=== PATIENT | male | born 1945 | race Hispanic/Latino ===

== ENCOUNTER 2019-04-02 07:50 | Inpatient (IN) | payer MEDICARE ==
[~2019-04-02] VITALS: Ht 165.1 cm; Wt 72.7 kg
[2019-04-02] VITALS (20 sets, daily range): BP systolic 88–205; BP diastolic 48–85
[2019-04-02 08:03] LABS: BASOPHILS % (AUTO) 0.5 % (0.0-5.0); HEMATOCRIT 34.1 % (42-54); LYMPHOCYTES % (AUTO) 13.4 % (21.0-51.0); MEAN CORPUSCULAR HEMOGLOBIN 28.7 pg (27.0-33.0); MEAN CORPUSCULAR HGB CONC 33.7 g/dL (32.0-36.0); MEAN CORPUSCULAR VOLUME 85.3 fL (79-99); MONOCYTES % (AUTO) 7.3 % (3.0-13.0); NEUTROPHILS % (AUTO) 77.8 % (40.0-77.0); PLATELET COUNT (AUTO) 231 K/uL (130-400); RED CELL DISTRIBUTION WIDTH 17.2 % (11.0-15.5)
[2019-04-02 08:16] LABS: CREATININE 0.8 mg/dL (0.5-1.5); POTASSIUM 4.6 mmol/L (3.5-5.1)
[2019-04-02 08:21] LABS: ALBUMIN 3.6 g/dL (3.5-5.0); BILIRUBIN,TOTAL 0.3 mg/dL (0.2-1.0); TOTAL PROTEIN, SERUM 7.3 g/dL (6.0-8.3)
[2019-04-02 08:22] LABS: MAGNESIUM 1.7 mg/dL (1.80-2.40)
[2019-04-02] MEDS ORDERED: MAGNESIUM OXIDE 400 MG TABLET PO ONE (08:34)
[2019-04-02 10:03] LABS: APPEARANCE,URINE Clear (CLEAR); BILIRUBIN,URINE Negative (NEGATIVE); GLUCOSE, URINE (UA) Negative (NEGATIVE); KETONES,URINE Trace mg/dL (NEGATIVE); LEUKOCYTE ESTERASE ,URINE Negative (NEGATIVE); NITRATE,URINE Negative (NEGATIVE); OCCULT BLOOD,URINE Negative (NEGATIVE); PROTEIN,URINE Negative (NEGATIVE)
[2019-04-02 10:05] LABS: COLOR,URINE YELLOW (YELLOW)
[2019-04-02] MEDS ORDERED: ACETAMINOPHEN 325 MG TAB PO PRN ×2 (10:30)
[2019-04-02] MEDS ORDERED: HYDRALAZINE HCL 20 MG/ML VIAL IV PRN (10:30)
[2019-04-02] MEDS ORDERED: SODIUM CHLORIDE 0.9% 1000ML 1,000 ML IV ONE (11:52)
[2019-04-02] MEDS ORDERED: LORAZEPAM 2 MG/ML 1 ML VIAL ONE ×3 (12:13→13:04)
[2019-04-02] MEDS ORDERED: SODIUM CHLORIDE 0.9% 100 ML IV ONE (12:17)
[2019-04-02 13:07] LABS: ABG BASE EXCESS -2.1 mmol/L (-2.0-3.0); ABG HCO3 24.6 mmol/L (21.0-28.0); ABG OXYGEN SATURATION 99.8 % (95.0-99.0); ABG PCO2 49 mmHg (35-48)
--- NOTE | 2019-04-02 14:00 | NUR ---
RECEIVED PT FROM ER. ASSESSMENT COMPLETED NOTED. PT ORALLY INTUBATED AT PRESCRIBED VENT SETTINGS. PIV X 2 INTACT. PT ON NS AT 100 ML/HR. VS NOTED ON COMPUTER. NO SEIZURE ACTIVITY NOTED AT THIS TIME. DR. SALINAS CALLED AND NOTIFIED OF PT ARRIVAL TO UNIT.
[2019-04-02] MEDS ORDERED: PROPOFOL 1000 MG/100 ML 100 ML IV ONE ×2 (14:11→20:09)
[2019-04-02] MEDS ORDERED: LISI-617 PO (14:50)
[2019-04-02] MEDS ORDERED: TAMS-1 PO (14:50)
[2019-04-02] MEDS ORDERED: AMAN100C12 PO (14:50)
[2019-04-02] MEDS ORDERED: GABA-529 PO (14:50)
[2019-04-02] MEDS ORDERED: PALI3TAB5 PO (14:50)
[2019-04-02] MEDS ORDERED: ESCI20TA36 PO (14:50)
[2019-04-02] MEDS ORDERED: LOVA40TA2 PO (14:50)
[2019-04-02] MEDS ORDERED: DUTA0.5C17 PO (14:50)
[2019-04-02] MEDS ORDERED: DONE10TA43 PO (14:50)
[2019-04-02] MEDS ORDERED: BUPR150T8 PO (14:50)
[2019-04-02] MEDS ORDERED: METF-444 PO (14:50)
[2019-04-02] MEDS ORDERED: CARB1TAB41 PO (14:50)
[2019-04-02] MEDS ORDERED: SOLI5 PO (14:50)
[2019-04-02] MEDS ORDERED: ROTI1PAT10 TD (14:50)
[2019-04-02] MEDS: SODIUM CHLORIDE 0.9% 1000ML 1,000 ML IV SCH ×2 (14:52→20:21)
[2019-04-02] MEDS ORDERED: LORAZEPAM 2 MG/ML 1 ML VIAL IVP PRN (15:00)
--- NOTE | 2019-04-02 15:00 | NUR ---
Manuel VAIL CAR BODY DESIGNER AT BEDSIDE TO SEE PT. PLAN OF CARE DISCUSSED. NEW ORDERS RECEIVED AND NOTED. PT STARTED ON PROPOFOL FOR SEDATION AND HYDRALAZINE GIVEN FOR SBP 200S. AT BEDSIDE. ALL QUESTIONS ANSWERED.
[2019-04-02] MEDS: PHENYTOIN SODIUM 50 MG/ML 2ML VIAL IV SCH (15:34)
[2019-04-02] MEDS: LACTATED RINGERS 1000ML 1,000 ML IV SCH (15:34)
[2019-04-02] MEDS: THIAMINE HCL 100 MG/ML 2ML VIAL IM SCH (20:11)
[2019-04-02] MEDS: FAMOTIDINE/PF 20 MG/2 ML VIAL IV SCH (20:11)
[2019-04-02] MEDS ORDERED: FAMOTIDINE/PF 20 MG/2 ML VIAL IV SCH (21:00)
[2019-04-03] VITALS (27 sets, daily range): BP systolic 57–141; BP diastolic 40–77
[2019-04-03] MEDS: PHENYTOIN SODIUM 50 MG/ML 2ML VIAL IV SCH ×3 (01:08→16:40)
[2019-04-03] MEDS: LACTATED RINGERS 1000ML 1,000 ML IV SCH (01:19)
[2019-04-03] MEDS ORDERED: PROPOFOL 1000 MG/100 ML 100 ML IV ONE (02:57)
[2019-04-03] MEDS ORDERED: PROPOFOL 1000 MG/100 ML IV PRN (03:30)
[2019-04-03 03:43] LABS: BASOPHILS % (AUTO) 0.6 % (0.0-5.0); EOSINOPHILS % (AUTO) 0.5 % (0.0-8.0); HEMATOCRIT 31.7 % (42-54); LYMPHOCYTES % (AUTO) 19.5 % (21.0-51.0); MEAN CORPUSCULAR HEMOGLOBIN 28.2 pg (27.0-33.0); MEAN CORPUSCULAR HGB CONC 33.4 g/dL (32.0-36.0); MEAN CORPUSCULAR VOLUME 84.6 fL (79-99); MONOCYTES % (AUTO) 11.8 % (3.0-13.0); NEUTROPHILS % (AUTO) 67.6 % (40.0-77.0); NUCLEATED RED BLOOD CELLS 0.1 % (0.0-0.19); PLATELET COUNT (AUTO) 237 K/uL (130-400); RED BLOOD CELL COUNT(AUTO) 3.75 MIL/uL (4.50-6.20); RED CELL DISTRIBUTION WIDTH 16.9 % (11.0-15.5)
[2019-04-03 03:53] LABS: CREATININE 0.7 mg/dL (0.5-1.5); POTASSIUM 3.8 mmol/L (3.5-5.1)
[2019-04-03] MEDS: INSULIN HUMULIN R 100 UNIT/ML 3ML SQ SCH ×5 (06:00→23:57)
[2019-04-03] MEDS: SODIUM CHLORIDE 0.9% 1000ML 1,000 ML IV SCH ×2 (06:21→10:18)
[2019-04-03] MEDS: PROPOFOL 1000 MG/100 ML 100 ML IV PRN (08:13)
[2019-04-03] MEDS: THIAMINE HCL 100 MG/ML 2ML VIAL IM SCH ×2 (08:55→20:18)
[2019-04-03] MEDS: ASPIRIN 325 MG TABLET PO SCH (08:56)
[2019-04-03] MEDS: FAMOTIDINE/PF 20 MG/2 ML VIAL IV SCH ×2 (08:56→20:17)
[2019-04-03] MEDS: ENOXAPARIN SODIUM 40 MG/0.4 ML SYRINGE SQ SCH (08:58)
[2019-04-03] MEDS ORDERED: MAGNESIUM 2GM PREMIX 50ML 50 ML IV PRN (09:45)
[2019-04-03 09:47] LABS: ABG BASE EXCESS 3.8 mmol/L (-2.0-3.0); ABG OXYGEN SATURATION 99.1 % (95.0-99.0); ABG PCO2 32 mmHg (35-48)
--- NOTE | 2019-04-03 09:47 | NUR ---
Decreased rate to 10 and FiO2 to 30% Addendum: 04/03/19 at 1048 by EHENA SARMIENTO RT Amended: Links added.
--- NOTE | 2019-04-03 10:15 | NUR ---
Per Nursing to disregard Physical Therapy order for now.LAVELL Man aware of this matter.Patient is intubated. Addendum: 04/03/19 at 1018 by TIKI SHERMAN, PT PT Amended: Links added.
[2019-04-03] MEDS ORDERED: LEVETIRACETAM 1,000 MG in SODIUM CHLORIDE 0.9% 100 ML IV SCH (11:00)
[2019-04-03] MEDS: ALBUTEROL SULFATE 0.083% 2.5 MG/3 ML INH IH PRN ×3 (12:04→23:42)
[2019-04-03] MEDS ORDERED: COMPOUND IV MISC 1 EACH IVSOLN MISC PRN ×2 (12:15→16:00)
--- NOTE | 2019-04-03 14:09 | NUR ---
DC PLAN VISITED WITH PATIENT. PATIENT VENTED. SPOUSE AT BEDSIDE. PATIENT LIVES WITH SPOUSE ON NEXT TO CHILDREN. PATIENT USES A CANE AND WALKER. PROVIDER 18 HRS A WEEK. FEELS SHOULD BE SAFE TO RETURN HOME. WILL WAIT UNTIL PATIENT IS EXTUBATED TO SEE HOW PATIENT DOES. Addendum: 04/03/19 at 1412 by MIKE URIARTE RN CM Amended: Links added.
[2019-04-03] MEDS ORDERED: PHARMACY COMMUNICATION MISC SCH (15:00)
--- NOTE | 2019-04-03 15:00 | NUR ---
PATIENT RESEDATED, PER DR RUBIN'S REQUEST; WILL TRY SEDATION VACATION AGAIN TOMORROW MORNING
[2019-04-03] MEDS: ZOSYN 3.375GM+NS 50ML 50 ML IV SCH ×2 (15:34→20:15)
[2019-04-03] MEDS: CARBIDOPA-LEVODOPA 25-100 TAB PO SCH ×2 (15:34→20:18)
[2019-04-03] MEDS ORDERED: CHLORIDE IV SCH (16:00)
[2019-04-03] MEDS ORDERED: SODIUM IV SCH (16:00)
[2019-04-03] MEDS ORDERED: VALPROIC ACID IV SCH (16:00)
--- NOTE | 2019-04-03 19:00 | NUR ---
BEDSIDE REPORT RECEIVED FROM AM NURSE. PT SEDATED & INTUBATED. ORAL CARE PROVIDED. NO S/S OF SEIZURES AT THIS TIME. BREATHING OVER VENT WITH TOTAL RESP RATE OF 14-16. PROPOFOL AT 10MCG/KG/MIN. PUPILS SLUGGISH, BUT EQUALLY REACTIVE. EYES MOVE FROM SIDE TO SIDE CONTINUOUSLY. DOES NOT FOCUS. INCREASED PROPOFOL TO 15MCG/KG/MIN. BEDSIDE MONITORING SINUS HERRERA HR 50'S. SBP 120'S. REFER TO V/S FLOWSHEET. REPOSITIONED FOR COMFORT. BILATERAL LOWER EXTREMITY SCD'S. SPOUSE AT BEDSIDE. INSTRUCTED ON PLAN OF CARE. ALL QUESTIONS ADDRESSED & ANSWERED IN DETAIL. PT ON ASPIRATION & SEIZURE PRECAUTIONS. HOB ELEVATED TO 35 DEGREES AND ALL 4 RAILS PADDED.
[2019-04-03] MEDS: LEVETIRACETAM 1,500 MG in SODIUM CHLORIDE 0.9% 100 ML IV SCH (20:16)
[2019-04-03] MEDS: GABAPENTIN 100 MG CAPSULE PO SCH (20:18)
[2019-04-03] MEDS: SIMVASTATIN 20 MG TABLET PO SCH (20:18)
--- NOTE | 2019-04-03 21:00 | NUR ---
NGT CLAMPED. POSITION VERIFIED BY AUSCULTATION OF AIR IN EPIGASTRIC AREA. NO RESIDUALS. PM MEDS CRUSHED AND GIVEN VIA NGT FLUSHED WITH 200ML OF WATER. HOB 40 DEGREES. SPOUSE IN ROOM.
--- NOTE | 2019-04-03 23:02 | NUR ---
REPOSITIONED FOR COMFORT. ORAL CARE PROVIDED. NO S/S OF SEIZURES. SPOUSE STATED SHE WILL STAY OVER NIGHT.
--- NOTE | 2019-04-03 23:55 | NUR ---
RECEIVED CALL FROM DR RUBIN. ASKED FOR PT UPDATED. INFORMED HIM OF V/S, CURRENT SEDATION RATE, RESPIRATORY STATUS, NO S/S OF SEIZURES DURING MY SHIFT. HE ORDERED TO REPEAT CT BRAIN WITHOUT CONTRAST FOR TOMORROW AND SPECIFIED FOR IT TO BE DONE AFTER 8AM.
[2019-04-04] VITALS (24 sets, daily range): BP systolic 100–152; BP diastolic 52–70
[2019-04-04] MEDS: PHENYTOIN SODIUM 50 MG/ML 2ML VIAL IV SCH ×4 (00:02→23:36)
[2019-04-04] MEDS: SODIUM CHLORIDE 0.9% 1000ML 1,000 ML IV SCH ×3 (02:25→23:36)
[2019-04-04] MEDS: ZOSYN 3.375GM+NS 50ML 50 ML IV SCH ×3 (03:51→21:12)
[2019-04-04] MEDS: PROPOFOL 1000 MG/100 ML 100 ML IV PRN ×2 (03:52→10:31)
[2019-04-04 03:53] LABS: HEMATOCRIT 33.3 % (42-54); MEAN CORPUSCULAR HEMOGLOBIN 28.2 pg (27.0-33.0); MEAN CORPUSCULAR VOLUME 85.5 fL (79-99); PLATELET COUNT (AUTO) 213 K/uL (130-400); RED CELL DISTRIBUTION WIDTH 17.3 % (11.0-15.5)
[2019-04-04 04:00] LABS: CREATININE 0.7 mg/dL (0.5-1.5); POTASSIUM 3.6 mmol/L (3.5-5.1)
[2019-04-04] MEDS ORDERED: VALPROIC ACID (AS SODIUM SALT) 500 MG in SODIUM CHLORIDE 0.9% 50 ML IV SCH (04:00)
[2019-04-04] MEDS ORDERED: POTASSIUM CHLORIDE 10% ELIXIR 20 MEQ/15 ML UDCUP ONE (04:26)
[2019-04-04] MEDS ORDERED: POTASSIUM CHLORIDE 20MEQ/100ML 100 ML IV PRN (04:30)
[2019-04-04] MEDS ORDERED: POTASSIUM CHLORIDE 20 MEQ ERTAB PO PRN (04:30)
[2019-04-04] MEDS ORDERED: LIDOCAINE HCL-MPF 1% 2ML VIAL IVP PRN (04:30)
[2019-04-04] MEDS: INSULIN HUMULIN R 100 UNIT/ML 3ML SQ SCH ×4 (05:23→23:18)
--- NOTE | 2019-04-04 05:36 | NUR ---
HYPOKALEMIA COVERED WITH 20MEQ KCL ELIXIR PER OG TUBE AND PER MD PROTOCOL. PORTABLE CXR DONE. TOLERATED WELL. Addendum: 04/04/19 at 0538 by YAMILET JARA RN RN Amended: Links added.
[2019-04-04] MEDS: ALBUTEROL SULFATE 0.083% 2.5 MG/3 ML INH IH PRN (06:08)
[2019-04-04] MEDS: LEVETIRACETAM 1,500 MG in SODIUM CHLORIDE 0.9% 100 ML IV SCH ×2 (08:59→20:35)
[2019-04-04] MEDS: THIAMINE HCL 100 MG/ML 2ML VIAL IM SCH ×2 (09:00→20:35)
[2019-04-04] MEDS: GABAPENTIN 100 MG CAPSULE PO SCH ×2 (09:00→20:36)
[2019-04-04] MEDS: ASPIRIN 325 MG TABLET PO SCH (09:00)
[2019-04-04] MEDS: CARBIDOPA-LEVODOPA 25-100 TAB PO SCH (09:00)
[2019-04-04] MEDS: FAMOTIDINE/PF 20 MG/2 ML VIAL IV SCH ×2 (09:00→20:34)
[2019-04-04] MEDS ORDERED: BUPROPION HCL 150 MG TABLET.SA PO SCH (09:00)
[2019-04-04] MEDS: CITALOPRAM 20 MG TABLET PO SCH (09:00)
[2019-04-04] MEDS: ENOXAPARIN SODIUM 40 MG/0.4 ML SYRINGE SQ SCH (09:01)
[2019-04-04] MEDS: IPRATROPIUM/ALBUTEROL SULFATE 3 ML SOLUTION IH SCH ×4 (10:13→21:17)
[2019-04-04] MEDS: POTASSIUM CHLORIDE 10% ELIXIR 20 MEQ/15 ML UDCUP PO PRN (10:30)
--- NOTE | 2019-04-04 12:05 | NUR ---
Nutrition intervention: Nutrition consult for TF recommendations. Pt with OGT in place. Admitted for syncope vs. seizures. Currently on Dilantin via IV, Propofol at 8.4ml/hr providing 222kcals. Pt with PMH of prostate cancer, HTN, DM, hyperlipidemia, dementia, Parkinson's, schizophrenia, anxiety. LBM unknown. Recommendations: Glucerna 1.5, Goal rate of 50ml/hr, 175ml Q6H. Please consult RD if dilantin medication changes to PO while on TF. TF schedule to be changed to accommodate for medication. RD to continue monitoring pt's nutritional status for continued intervention. Addendum: 04/04/19 at [address] Amended: Links added.
[2019-04-04] MEDS: LEVODOPA PO SCH ×3 (12:58→20:36)
[2019-04-04] MEDS: CARBIDOPA PO SCH ×3 (12:58→20:36)
[2019-04-04] MEDS ORDERED: PHARMACY COMMUNICATION MISC SCH ×2 (13:00→16:00)
[2019-04-04] MEDS: NEUPRO TD SCH (13:11)
[2019-04-04] MEDS ORDERED: SODIUM IV SCH (16:15)
[2019-04-04] MEDS ORDERED: VALPROIC ACID IV SCH (16:15)
[2019-04-04] MEDS ORDERED: CHLORIDE IV SCH (16:15)
[2019-04-04] MEDS: SIMVASTATIN 20 MG TABLET PO SCH (20:36)
[2019-04-05] VITALS (24 sets, daily range): BP systolic 115–162; BP diastolic 51–86
[2019-04-05] MEDS: IPRATROPIUM/ALBUTEROL SULFATE 3 ML SOLUTION IH SCH ×6 (01:29→21:24)
[2019-04-05] MEDS: SODIUM IV SCH ×2 (04:04→17:00)
[2019-04-05] MEDS: VALPROIC ACID IV SCH ×2 (04:04→17:00)
[2019-04-05] MEDS: CHLORIDE IV SCH ×2 (04:04→17:00)
[2019-04-05] MEDS: ZOSYN 3.375GM+NS 50ML 50 ML IV SCH ×3 (04:09→21:37)
[2019-04-05 04:15] LABS: MEAN CORPUSCULAR HGB CONC 32.9 g/dL (32.0-36.0); MEAN CORPUSCULAR VOLUME 85.1 fL (79-99); PLATELET COUNT (AUTO) 223 K/uL (130-400); RED BLOOD CELL COUNT(AUTO) 3.76 MIL/uL (4.50-6.20); RED CELL DISTRIBUTION WIDTH 17.4 % (11.0-15.5); WHITE BLOOD COUNT (AUTO) 15.9 K/uL (4.8-10.8)
[2019-04-05 04:16] LABS: INR 1.01 (0.85-1.15); PARTIAL THROMBOPLASTIN TIME 32.1 SEC (26.3-35.5); PROTHROMBIN TIME 10.6 SEC (9.6-11.6)
[2019-04-05 04:18] LABS: CREATININE 0.7 mg/dL (0.5-1.5); POTASSIUM 3.8 mmol/L (3.5-5.1)
[2019-04-05 04:54] LABS: ABG BASE EXCESS -0.9 mmol/L (-2.0-3.0); ABG HCO3 23.2 mmol/L (21.0-28.0); ABG OXYGEN SATURATION 98.2 % (95.0-99.0); ABG PCO2 37 mmHg (35-48)
[2019-04-05] MEDS: INSULIN HUMULIN R 100 UNIT/ML 3ML SQ SCH ×3 (06:00→18:00)
[2019-04-05] MEDS: SODIUM CHLORIDE 0.9% 1000ML 1,000 ML IV SCH (08:21)
[2019-04-05] MEDS: PHENYTOIN SODIUM 50 MG/ML 2ML VIAL IV SCH ×2 (08:58→16:00)
[2019-04-05] MEDS: FAMOTIDINE/PF 20 MG/2 ML VIAL IV SCH ×2 (08:58→21:36)
[2019-04-05] MEDS: THIAMINE HCL 100 MG/ML 2ML VIAL IM SCH ×2 (08:59→21:36)
[2019-04-05] MEDS: CITALOPRAM 20 MG TABLET PO SCH (08:59)
[2019-04-05] MEDS: LEVODOPA PO SCH ×4 (09:00→21:41)
[2019-04-05] MEDS: CARBIDOPA PO SCH ×4 (09:00→21:41)
[2019-04-05] MEDS: NEUPRO TD SCH (09:00)
[2019-04-05] MEDS: ASPIRIN 325 MG TABLET PO SCH (09:00)
--- NOTE | 2019-04-05 09:30 | NUR ---
PT'S HAS BEEN ADVISED OF ALL THE PROCEDURES TO BE DONE AND PLAN OF CARE. VERBALIZES UNDERSTANDING AND CONSENT FOR LUMBAR PUNCTURE TO BE SIGNED.
[2019-04-05] MEDS: GABAPENTIN 100 MG CAPSULE PO SCH ×2 (09:32→21:37)
[2019-04-05] MEDS: LEVETIRACETAM 1,500 MG in SODIUM CHLORIDE 0.9% 100 ML IV SCH ×2 (09:32→21:35)
[2019-04-05] MEDS: LEVOFLOXACIN 500 MG/D5W 100 ML 100 ML IV SCH (09:53)
--- NOTE | 2019-04-05 11:20 | NUR ---
PT HAD SPINAL TAP PROCEDURE PER DR. LUTHER FRANKEL. PT WAS PLACED IN A SITTING POSITION FOR PROCEDURE. CSF WAS SEND ORDERED AND WILL AWAIT FOR RESULTS TO NOTIFY DR. RUBIN.
[2019-04-05 11:51] LABS: GLUCOSE, CSF 102 mg/dL (40-70); TOTAL PROTEIN, CSF 58 mg/dL (15-45)
[2019-04-05 12:01] LABS: APPEARANCE2,CSF CLEAR (CLEAR); COLOR2,CSF COLORLESS (COLORLESS); CSF 2ND TUBE NUMBER TUBE NO.2
--- NOTE | 2019-04-05 15:00 | NUR ---
PLACED A CALL TO R TO INITIATE A TRANSFER TO A HIGHER LEVEL OF CARE FOR A CONTINUOUS EEG MONITORING DURING SEDATION REDUCTION, TO R/O PARKINSON'S TREMORS VS SEIZURES. SPOKE WITH [facility], SHE STATED THAT THEY ARE AT CAPACITY, NO NEURO ICU BEDS AT THIS TIME.
--- NOTE | 2019-04-05 18:00 | NUR ---
WAS ADVISED OF POSSIBLE TRANSFER TO [facility] AND IS UNSURE IF SHE CAN GO WITH PATIENT DUE TO HER NOT HAVING ANYONE TO TAKE HER BACK AND FORTH.
[2019-04-05] MEDS: SIMVASTATIN 20 MG TABLET PO SCH (21:37)
[2019-04-06] VITALS (19 sets, daily range): BP systolic 113–157; BP diastolic 46–105
[2019-04-06] MEDS ORDERED: SODIUM CHLORIDE 0.9% 100 ML IV ONE (00:10)
[2019-04-06] MEDS: PHENYTOIN SODIUM 50 MG/ML 2ML VIAL IV SCH ×3 (00:11→15:54)
[2019-04-06] MEDS: IPRATROPIUM/ALBUTEROL SULFATE 3 ML SOLUTION IH SCH ×4 (01:58→13:37)
[2019-04-06] MEDS: PROPOFOL 1000 MG/100 ML 100 ML IV PRN (03:05)
[2019-04-06] MEDS: SODIUM CHLORIDE 0.9% 1000ML 1,000 ML IV SCH ×3 (04:11→16:01)
[2019-04-06] MEDS: ZOSYN 3.375GM+NS 50ML 50 ML IV SCH ×2 (04:12→14:19)
[2019-04-06] MEDS: VALPROIC ACID IV SCH ×2 (04:20→16:33)
[2019-04-06] MEDS: SODIUM IV SCH ×2 (04:20→16:33)
[2019-04-06] MEDS: CHLORIDE IV SCH ×2 (04:20→16:33)
[2019-04-06 04:35] LABS: CREATININE 0.6 mg/dL (0.5-1.5); POTASSIUM 3.5 mmol/L (3.5-5.1)
[2019-04-06 04:39] LABS: HEMATOCRIT 29.9 % (42-54); MEAN CORPUSCULAR HEMOGLOBIN 29.1 pg (27.0-33.0); MEAN CORPUSCULAR HGB CONC 33.8 g/dL (32.0-36.0); MEAN CORPUSCULAR VOLUME 86.1 fL (79-99); NUCLEATED RED BLOOD CELLS 0.1 % (0.0-0.19); PLATELET COUNT (AUTO) 184 K/uL (130-400); RED BLOOD CELL COUNT(AUTO) 3.47 MIL/uL (4.50-6.20); RED CELL DISTRIBUTION WIDTH 17.5 % (11.0-15.5)
[2019-04-06] MEDS: INSULIN HUMULIN R 100 UNIT/ML 3ML SQ SCH ×4 (06:00→18:00)
[2019-04-06 06:14] LABS: ABG BASE EXCESS 1.5 mmol/L (-2.0-3.0); ABG HCO3 25.6 mmol/L (21.0-28.0); ABG OXYGEN SATURATION 97.8 % (95.0-99.0); ABG PCO2 39 mmHg (35-48)
[2019-04-06] MEDS: LEVETIRACETAM 1,500 MG in SODIUM CHLORIDE 0.9% 100 ML IV SCH (09:20)
[2019-04-06] MEDS: ASPIRIN 325 MG TABLET PO SCH (09:22)
[2019-04-06] MEDS: CITALOPRAM 20 MG TABLET PO SCH (09:22)
[2019-04-06] MEDS: GABAPENTIN 100 MG CAPSULE PO SCH (09:22)
[2019-04-06] MEDS: LEVODOPA PO SCH ×3 (09:23→16:33)
[2019-04-06] MEDS: CARBIDOPA PO SCH ×3 (09:23→16:33)
[2019-04-06] MEDS: FAMOTIDINE/PF 20 MG/2 ML VIAL IV SCH (09:28)
[2019-04-06] MEDS: NEUPRO TD SCH (09:36)
[2019-04-06] MEDS: THIAMINE HCL 100 MG/ML 2ML VIAL IM SCH (09:40)
--- NOTE | 2019-04-06 10:17 | NUR ---
Nutrition Follow-up: [facility] post epilepticus(04/02/19). Pt. S/P Lumbar puncture(04/05/19). Pt. on TF with Glucerna 1.5@40ml/hr with no residuals. Labs reviewed(Alb 3.6, BG 148). LBM: Not available. SR-12, elastic. Recommendations: 1) Rec. increase Glucerna TF rate by 5ml every 5 hrs. to goal rate of 50ml/hr. 2) Flush with 175ml free water every 6 hrs. 3) Continue to monitor pt's nutritional status and TF tolerance. 4) Consult RD as nutrition concerns arise. Addendum: 04/06/19 at [address] Amended: Links added.
[2019-04-06] MEDS: LEVOFLOXACIN 500 MG/D5W 100 ML 100 ML IV SCH (11:23)
[2019-04-06] MEDS: POTASSIUM CHLORIDE 10% ELIXIR 20 MEQ/15 ML UDCUP PO PRN ×2 (15:26→15:27)
[2019-04-06] MEDS ORDERED: FOSPHENYTOIN SODIUM IV SCH (15:45)
[2019-04-06] MEDS ORDERED: SODIUM CHLORIDE 0.9% IV SCH (15:45)
--- NOTE | 2019-04-06 19:15 | NUR ---
Transferred to [facility] visit via EMS with vent. notified.
== END 2019-04-06 19:16 | disposition short-term general hospital (02) | DRG 101 ==
LOC: EDH 07:50 → EDHIP 10:21 → OBSVTOIN 10:21 → 2BH 13:53
PROVIDERS: ADMIT Internal Medicine; ATTEND Internal Medicine
PROC: 5A1955Z Respiratory Ventilation, Greater than 96 Consecutive Hours (ICD-10-PCS; 2019-04-02)
PROC: 0BH17EZ Insertion of Endotracheal Airway into Trachea, Via Natural or Artificial Opening (ICD-10-PCS; 2019-04-02)
PROC: 009U3ZX Drainage of Spinal Canal, Percutaneous Approach, Diagnostic (ICD-10-PCS; principal; 2019-04-05)
DX: G40.901 Epilepsy, unspecified, not intractable, with status epilepticus (principal); J98.11 Atelectasis; G20 Parkinson's disease; F20.9 Schizophrenia, unspecified; F32.9 Major depressive disorder, single episode, unspecified; C61 Malignant neoplasm of prostate; E11.9 Type 2 diabetes mellitus without complications; E78.2 Mixed hyperlipidemia; J32.0 Chronic maxillary sinusitis; F02.80 Dementia in other diseases classified elsewhere, unspecified severity, without behavioral disturbance, psychotic disturbance, mood disturbance, and anxiety; F41.9 Anxiety disorder, unspecified; G30.9 Alzheimer's disease, unspecified; I10 Essential (primary) hypertension; I65.29 Occlusion and stenosis of unspecified carotid artery; Z85.46 Personal history of malignant neoplasm of prostate
CPT/HCPCS: 31500; 36415; 36600; 70450; 71045; 71250; 80048; 80053; 80164; 80185; 81003; 82140; 82550; 82803; 82945; 82948; 83605; 83735; 83880; 83930; 83935; 84157; 84443; 84484; 85025; 85027; 85610; 85730; 86592; 87040; 87071; 87077; 87147; 87186; 87205; 87483; 87804; 89051; 93005; 93306; 93880; 94002; 94003; 94640; 94664; 94667; 94668; 95816; 99291; G0378; J0360; J1165; J1650; J1815; J1953; J1956; J2060; J2543; J2704; J3411; J3490; J7030; J7120; Q2009